=== PATIENT | male | born 1975 | race Caucasian/White ===

== ENCOUNTER → 2019-01-15 14:50 | Outpatient (CLI) | payer MEDICAID, SELFPAY ==
[2015-12-22 14:54] VITALS: BMI 20.5
[2019-01-15 19:25] LABS: Amphetamine Urine VISTA NEGATIVE (<1000 ng/mL); Barbiturate Urine VISTA NEGATIVE (< 200 ng/mL); Benzodiazepine Urine VISTA POSITIVE (< 200 ng/mL); Cocaine Urine VISTA NEGATIVE (< 300 ng/mL); Ecstacy Urine VISTA NEGATIVE (< 500 ng/mL); Methadone Urine VISTA NEGATIVE (< 300 ng/mL); PCP Urine VISTA NEGATIVE (< 25 ng/mL); THC Urine VISTA POSITIVE (< 50 ng/mL); Vista UDS pH Range 6
== END ==
PROVIDERS: PCP Family Medicine; Visit Provider Family Medicine
DX: Z51.81 Encounter for therapeutic drug level monitoring (principal)
CPT/HCPCS: 80307

== ENCOUNTER → 2022-11-04 | Outpatient (CLI) | payer MEDICARE, MEDICAID, SELFPAY ==
[2022-11-04 12:43] LABS: Amphetamine Urine VISTA NEGATIVE (<1000 ng/mL); Barbiturate Urine VISTA NEGATIVE (< 200 ng/mL); Benzodiazepine Urine VISTA POSITIVE (< 200 ng/mL); Cocaine Urine VISTA NEGATIVE (< 300 ng/mL); Ecstacy Urine VISTA NEGATIVE (< 500 ng/mL); Methadone Urine VISTA NEGATIVE (< 300 ng/mL); PCP Urine VISTA NEGATIVE (< 25 ng/mL); THC Urine VISTA POSITIVE (< 50 ng/mL); Vista UDS pH Range 6
== END | disposition home or self-care (01) ==
LOC: LABSPEC 08:21
PROVIDERS: PCP Family Medicine; Referring Provider Family Medicine; Visit Provider Family Medicine
DX: Z79.899 Other long term (current) drug therapy (principal)
CPT/HCPCS: 80307

== ENCOUNTER → 2023-07-19 | Outpatient (CLI) | payer MEDICARE, MEDICAID, SELFPAY ==
[2023-07-19 17:43] LABS: Absolute Lymphocyte Count 2.82 X10^3/uL (0.83-4.51); Basophil# 0.07 X10^3/uL; Basophil% 0.7 % (0-1); Eosinophil# 0.12 X10^3/uL; Eosinophils% 1.3 % (0-5); Hematocrit 43.7 % (40-54); Hemoglobin 13.5 g/dL (13.0-16.5); Lymphocyte # 2.82 X10^3/ul (0.83-4.51); Lymphocyte % 29.7 % (19-41); Mean Corp Hgb Conc 30.9 g/dL (32-36); Mean Corpuscular Hgb 28.7 pg (27.0-32.0); Mean Corpuscular Volume 92.8 fL (80-94); Mean Platelet Vol. 9.3 fl (6.2-12.0); Monocyte# 0.46 X10^3/uL; Monocyte% 4.9 % (0-10); NRBC Flagged by Analyzer 0 % (0-5); Neutrophil % 63.3 % (47-70); Platelet Count 339 K/mm3 (150-450); RBC Distribution Width CV 15.5 % (11.6-14.6); RBC Distribution Width SD 53.1 fl (35.1-43.9); Red Blood Count 4.71 M/mm3 (4.6-6.2); White Blood Count 9.5 K/mm3 (4.4-11.0)
[2023-07-19 18:07] LABS: Amphetamine Urine VISTA NEGATIVE (<1000 ng/mL); Barbiturate Urine VISTA NEGATIVE (< 200 ng/mL); Benzodiazepine Urine VISTA POSITIVE (< 200 ng/mL); Cocaine Urine VISTA NEGATIVE (< 300 ng/mL); Ecstacy Urine VISTA NEGATIVE (< 500 ng/mL); Methadone Urine VISTA NEGATIVE (< 300 ng/mL); PCP Urine VISTA NEGATIVE (< 25 ng/mL); THC Urine VISTA POSITIVE (< 50 ng/mL); Vista UDS pH Range 5
[2023-07-19 18:10] LABS: AST(SGOT) 13 U/L (15-37); Alanine Aminotransfer ALT/SGPT 17 U/L (16-61); Albumin, Serum 3.9 g/dL (3.2-5.0); Alkaline Phosphatase 84 U/L (45-117); Anion Gap 8 (5-15); BUN 11 mg/dL (7-18); BUN/Creat Ratio 9.3 RATIO (10-20); Calcium,Total 8.6 mg/dL (8.5-10.1); Chloride 111 mmol/L (98-107); Cholesterol 232 mg/dL (200); Creatinine, Serum 1.18 mg/dL (0.70-1.30); EST Glomerular Filtration Rate 70 mL/min (>60); Est Glom Filt Rate - Afr Amer 85 mL/min (>60); Globulin 3.9 g/dL (2.2-4.2); Glucose 81 mg/dL (74-106); High Density Lipoprotein 25 mg/dL; Potassium 3.7 mmol/L (3.5-5.1); Protein, Total 7.8 g/dL (6.4-8.2); Sodium Level 139 mmol/L (136-145); Triglycerides 179 mg/dL; Very Low Density Lipoprotein 36 mg/dL (5-40)
--- OUTSIDE RECORDS SUMMARY | 2023-07-19 20:17 | XMS RPT_ITS | CCD ---
Author Name Unknown Address [address] [place] [address] Organization [facility] Care Team Providers Care Loss Prevention Analyst Name Role Phone DAKSHA DAVILA Unavailable Unavailable DAKSHA DAVILA Unavailable Unavailable MIRTA DAE ZOHRAB Unavailable Unavai lable MIRTA, DAE ZOHRAB Unavailable Unavai lable MIRTA DAE ZOHRAB Unavailable Unavai lable MIRTA, DAE ZOHRAB Unavailable Unavai lable DAKSHA DAVILA Unavailable Unavailable DAKSHA DAVILA Unavailable Unavailable NO REFERRING DR Unavailable Unavailable MIRTA, DAE Z Unavailable Unavailable MIRTA, DAE Z Unavailable Unavailable [facility] Unavailable Unavailable [facility] Unavailable Unavailable [facility] Unavailable Unavailable MIRTA, DAE Z Unavailable Unavailable MIRTA, DAE Z Unavailable Unavailable [facility] Unavailable Unavailable MIRTA, DAE Z Unavailable Unavailable MIRTA, DAE Z Unavailable Unavailable Roxanna Silva Primary Care Provider [phone] ROXANNA GORDILLO Attending Unavailable MD Juancho Sargent Attending Provider [phone] NON STAFF Primary Care Provider Unavailjeannie e ROXANNA SILVA Primary Care Physician Gasper Schultz Unavailable Juancho Sargent Unavailable Allergies Allergy Classification Reported Allergen(s) Allergy Type Date of Onset Reaction(s) Facility NSAIDs (1 source) Ketorolac Drug Allergy 7 Other (See Comments) [facility] (3 sources) ketorolac; Translations: [KETOROLAC TROMETHAMINE] Drug Allergy 7 [facility] Other [place] [facility] (1 source) NO KNOWN ALLERGIES; Translations: [NO KNOWN ALLERGIES] Propensity to adverse reactions (disorder) [facility] (6 sources) DULoxetine; Translations: [duloxetine] Drug Allergy 1 Unknown Reaction, Unknown [facility] Other (6 sources) gabapentin; Translations: [gabapentin] Drug Allergy 1 Unknown Reaction, Unknown [facility] Other (6 sources) Ketorolac; Translations: [Ketorolac] Drug Allergy 1 Unknown Reaction, makes me wanna tear my skin off. , Unknown [facility] Other (6 sources) topiramate; Translations: [topiramate] Drug Allergy 1 Unknown Reaction, Unknown [facility] Other Medications Current Medications Medication Drug Class(es) Dates Sig (Normalized) Sig (Original) acetaminophen 325 mg / HYDROcodone bitartrate 10 mg oral tablet (8 sources) Opioid Agonist Start: 05-06-2021 Hydrocodone-Acetam inophen Active 1 TAB PO As Directed May 06, 2021 7:12am Completed/Discontinued Medications Medication Drug Class(es) Dates Sig (Normalized) Sig (Original) 1 ml morphine sulfate 4 mg/ml injection (1 source) Opioid Agonist Start: 01-09-2021 End: 01-09-2021 morphine sulfate (PF) injection 8 mg ondansetron 4 mg disintegrating oral tablet (1 source) Serotonin-3 Receptor Antagonist Start: 01-09-2021 End: 01-09-2021 ondansetron (ZOFRAN-ODT) disintegrating tablet 4 mg 2 ml orphenadrine citrate 30 mg/ml injection (1 source) Muscle Relaxant Start: 01-09-2021 End: 01-09-2021 orphenadrine (NORFLEX) injection 60 mg Problems Active Problems Problem Classification Problem Date Documented Date Episodic/Chronic Genitourinary symptoms and ill-defined conditions (1 source) Unspecified urinary incontinence; Translations: [UNSPECIFIED URINARY INCO] Onset: 12-22-2016 Chronic Other nervous system disorders (5 sources) Cervical myelopathy; Translations: [Disease of spinal cord, unspecified] Chronic Other nervous system disorders (1 source) Disease of spinal cord, unspecified; Translations: [Cervical myelopathy G95.9] Onset: 03-09-2021 Resolved: 03-09-2021 Chronic Other nervous system disorders (4 sources) Chronic pain; Translations: [Other chronic pain] Chronic Other nervous system disorders (1 source) Other chronic pain Onset: 04-24-2021 Resolved: 04-24-2021 Chronic Other non-traumatic joint disorders (1 source) Osteophyte of bone 08-17-2018 Episodic Other skin disorders (1 source) Folliculitis; Translations: [Follicular disorder, unspecified] Episodic Residual codes; unclassified (1 source) Chronic back pain 08-17-2018 Episodic Spondylosis; intervertebral disc disorders; other back problems (20 sources) Other intervertebral disc displacement, lumbosacral region; Translations: [Spondylosis without myelopathy or radiculopathy, lumbosacral region] Onset: 12-22-2016 Resolved: 04-24-2021 Chronic Substance-related disorders (2 sources) Nicotine dependence, cigarettes, uncomplicated; Translations: [Smoker] Onset: 12-22-2016 07-10-2017 Chronic Past or Other Problems Problem Classification Problem Date Documented Date Episodic/Chronic Joint disorders and dislocations; trauma-related (1 source) Dislocation of unspecified lumbar vertebra, sequela; Translations: [Dislocation of unspecified lumbar vertebra, sequela] Onset: 03-14-2017 Episodic Medical examination/evaluatio n (1 source) Encounter for other preprocedural examination; Translations: [Encounter for other preprocedural examination] Onset: 03-14-2017 Episodic Other aftercare (2 sources) ferry terminal agent (current) use of antibiotics; Translations: [Other terminologist (current) drug therapy] Onset: 12-22-2016 Episodic Spondylosis; intervertebral disc disorders; other back problems (14 sources) Low back pain; Translations: [Intervertebral disc disorders with radiculopathy, lumbar region] Onset: 12-22-2016 Resolved: 04-24-2021 Episodic Unclassified (1 source) Other intervertebral disc displacement, lumbosacral region Onset: 03-15-2017 Results Test Name Value Interpretation Reference Range Facil ity Vital Signs Date Time Vital Sign Value Performing Clinician Facility 05-06-2021 13:02-0500 Diastolic blood pressure 88 mm[Hg] MD Juancho Sargent Work Phone: [facility] 05-06-2021 13:02-0500 Heart rate 84 /min MD Juancho Sargent Work Phone: [facility] 05-06-2021 13:02-0500 Respiratory rate 16 /min MD Juancho Sargent Work Phone: [facility] 05-06-2021 13:02-0500 SaO2% (BldA) [Mass fraction] 98 % MD Juancho Sargent Work Phone: [facility] 05-06-2021 13:02-0500 Systolic blood pressure 118 mm[Hg] MD Juancho Sargent Work Phone: [facility] 05-06-2021 12:23-0500 Inhaled oxygen flow rate 3 L/min MD Juancho Sargent Work Phone: [facility] 05-06-2021 11:57-0500 Body height 167.64 cm MD Juancho Sargent Work Phone: [facility] 05-06-2021 11:57-0500 Body mass index (BMI) [Ratio] 25.7 kg/m2 MD Juancho Sargent Work Phone: [facility] 05-06-2021 11:57-0500 Body weight 72.12 kg MD Juancho Sargent Work Phone: [facility] 04-24-2021 09:30-0500 Body height 167.64 cm Juancho Sargent Other [facility] Other 04-24-2021 09:30-0500 Body mass index (BMI) [Ratio] 25.5 kg/m2 Juancho Sargent Other [facility] Other 04-24-2021 09:30-0500 Body weight 71.67 kg Juancho Sargent Other [facility] Other 04-24-2021 09:30-0500 Diastolic blood pressure 96 mm[Hg] Juancho Sargent Other [facility] Other 04-24-2021 09:30-0500 Systolic blood pressure 160 mm[Hg] Juancho Sargent Other [facility] Other 03-09-2021 14:30-0400 Body height 167.64 cm Gasper Schultz Other [facility] Other 03-09-2021 14:30-0400 Body mass index (BMI) [Ratio] 26.63 kg/m2 Gasper Schultz Other [facility] Other 03-09-2021 14:30-0400 Body weight 74.84 kg Gasper Schultz Other [facility] Other 01-09-2021 12:50-0400 Body height 167.6 cm Roxanna Gordillo MD Work Phone: [facility] Work Phone: 01-09-2021 12:50-0400 Body mass index (BMI) [Ratio] 26.63 kg/m2 Roxanna Gordillo MD Work Phone: [facility] Work Phone: 01-09-2021 12:50-0400 Body temperature 98.2 [degF] Roxanna Gordillo MD Work Phone: [facility] Work Phone: 01-09-2021 12:50-0400 Body weight 74.84 kg Roxanna Gordillo MD Work Phone: [facility] Work Phone: 01-09-2021 12:50-0400 Diastolic blood pressure 103 mm[Hg] Roxanna Gordillo MD Work Phone: [facility] Work Phone: 01-09-2021 12:50-0400 Heart rate 90 /min Roxanna Gordillo MD Work Phone: [facility] Work Phone: 01-09-2021 12:50-0400 Respiratory rate 18 /min Roxanna Gordillo MD Work Phone: [facility] Work Phone: 01-09-2021 12:50-0400 SaO2% (BldA) [Mass fraction] 98 % Roxanna Gordillo MD Work Phone: [facility] Work Phone: 01-09-2021 12:50-0400 Systolic blood pressure 169 mm[Hg] Roxanna Gordillo MD Work Phone: [facility] Work Phone: Encounters Encounter Date Encounter Type Care Provider Facility Start: 09-01-2021 End: 09-01-2021 Patient encounter procedure GASPER SCHULTZ [facility] Start: 05-26-2021 End: 05-26-2021 ambulatory Gasper Schultz Other [facility] Other Start: 05-26-2021 Telephone encounter Gasper Mariscal [facility] Start: 05-06-2021 (Procedure) Short Juancho Sargent [facility] Start: 05-06-2021 End: 05-06-2021 ambulatory Juancho Sargent Other [facility] Other Start: 05-06-2021 End: 05-06-2021 Admission to same day surgery center MD Juancho Sargent Work Phone: [facility] Start: 04-29-2021 End: 04-29-2021 ambulatory Juancho Sargent Other [facility] Other Start: 04-29-2021 Telephone encounter Juancho GARCÍA [facility] Start: 04-24-2021 End: 04-24-2021 ambulatory Juancho Sargent Other [place] [facility] Other Start: 04-24-2021 Office outpatient ne w 45 minutes Juancho Sargent [facility] [place] Start: 03-09-2021 Office outpatient ne w 45 minutes Gasper Schultz [facility] Start: 01-09-2021 Emergency department patient visit ROXANNA GORDILLO [facility] Start: 01-09-2021 End: 01-09-2021 Emergency department patient visit Roxanna Gordillo MD Work Phone: [facility] ED Procedures Date Procedure Procedure Detail Performing Clinician Start: 05-06-2021 Injection of spinal epidural space MD Juancho Sargent Work Phone: Plan of Treatment Date Care Activity Detail Author Start: 02-04-2021 Influenza vaccination Flu vaccine (# 1) [facility] Phone: Start: 1987 COVID-19 Vaccine (1) COVID-19 Vaccin e (1) [facility] Phone: Patient Education [facility] Patient referral [facility] Payers Date Payer Category Payer Medicaid [id number]. [id number] 2014 Medicare [id number] Medicaid [id number] Self-pay Social History Date Type Detail Facility Start: 01-09-2021 Tobacco smoking stat [facility] Current every day smoker [facility] Phone: Start: 01-09-2021 Cigarettes smoked current (pack per day) - Reported [facility] Phone: Start: 01-09-2021 Tobacco use and exposure Never used [facility] Start: 01-09-2021 Alcohol intake Ex-drinker (finding) [facility] Phone: Start: 1975 Sex Assigned At Not on file [employer] Phone: Exposure to SARS-CoV -2 (event) Not sure [facility] Start: 1975 Sex Assigned At Male F [facility] Tobacco Cigarettes [facility] Goals Date Patient Goal Desired Activity /State Evaluation note 04-24-2021 Note Date & Type Note Facility [facility] Other Evaluation note 03-09-2021 Note Date & Type Note Facility [facility] Other Evaluation + Plan note Note Date & Type Note Facility Evaluation + Plan note No data available for this section [facility] Evaluation note Note Date & Type Note Facility documented in this encounter [facility] Phone: Evaluation note Note Date & Type Note Facility Evaluation note No assessment information [facility] Evaluation note Note Date & Type Note Facility Evaluation note No Information [facility] Other History general Narrative - Reported Note Date & Type Note Facility [facility] Other History general Narrative - Reported Note Date & Type Note Facility History general Narrative - Reported [facility] Other Hospital Discharge instructions Attachments Note Date & Type Note Facility Hospital Discharge instructions The following attachments cannot be sent through Care Everywhere.Folliculitis (Maldivian)Back Pain (Maldivian)documented in this encounter [facility] Phone: Hospital Discharge instructions Note Date & Type Note Facility Hospital Discharge instructions No data available for this section [facility] Summary Purpose Family History Relationship Condition Age at Onset Recorded Date/T karolyn Not Specified No pertinent family history Unknown Advance Directives Advance Directive Response Recorded Date/ Time Advance Directives No April 10:29am Chief Complaint and Reason for Visit Chief Complaint Back Pain Reason for Referral Reason *Waiting for appt Evaluate and Treat; (R) YADIRA L5-S1 Diagnosis 1 Lumbosacral disc her niation (M51.27) Referral Organization [facility]ros[facility]gery Referring Provider First Name Gasper Referring Provider Last Name Ellen Referring Provider Specialty Neurosurger y Referred Organization [facility] Referred Provider Juancho Sargent Referred Address [address] [address] ,[place], [place],[address] Referred Provider Specialty Pain Medicin e Referral Priority Routine General Notes Nusrat Freeman 021 09:15:49 AM >Received today and sent P2P Additional Source Comments (unrecognized sect ion and content) No Status Records FoundNo Status Records FoundNo Status Records FoundNo Status Records FoundNo Status Records Found INFORMATION SOURCE (unrecogn ized section and content) DATE CREATED AUTHOR AUTHOR'S ORGANIZ ATION 11/29/2017 [facility] DATE CREATED AUTHOR AUTHOR'S ORGANIZ ATION 11/30/2017 [facility] DATE CREATED AUTHOR AUTHOR'S ORGANIZ ATION 01/10/2021 [facility] DATE CREATED AUTHOR AUTHOR'S ORGANIZ ATION 09/03/2021 [facility] Reason for Visit (unrecogniz ed section and content) RIGHT L5, S1 TRANSFORAMIN AL EPIDURAL STEROID INJ/EL Ordered Prescriptions (unrec ognized section and content) Scheduled Active and Recently Administ ered Medications (unrecognized section and content) FOR RECORDS PERTAINING TO PATIENTS WHO ARE OR HAVE BEEN ENROLLED IN A CHEMICAL DEPENDENCY/SUBSTANCEABUSE PROGRAM, SOME INFORMATION MAY BE OMITTED. This clinical summary was aggregated from multiple sources. Caution should be exercised in using it in the provision of clinical care. This summary normalizes information from multiple sources, and as a consequence, information in this document may materially change the coding, format and clinical context of patient data. In addition, data may be omitted in some cases. CLINICAL DECISIONS SHOULD BE BASED ON THE PRIMARY CLINICAL RECORDS. [employer] provides no warranty or guarantee of the accuracy or completeness of information in this document.
== END | disposition home or self-care (01) ==
PROVIDERS: PCP Family Medicine; Visit Provider Family Medicine
DX: Z00.00 Encounter for general adult medical examination without abnormal findings (principal); Z79.899 Other long term (current) drug therapy
CPT/HCPCS: 36415; 80053; 80061; 80307; 85025

== ENCOUNTER 2024-01-12 14:48 | Outpatient (CLI) | payer MEDICARE, MEDICAID, SELFPAY | END 2024-01-12 23:59 | disposition home or self-care (01) | PROVIDERS: PCP Family Medicine; Referring Provider Family Medicine; Visit Provider Family Medicine | DX: F11.90 Opioid use, unspecified, uncomplicated (principal) | CPT/HCPCS: 82570 ==

== ENCOUNTER → 2024-07-19 | Outpatient (CLI) | payer MEDICAID, OTHER, SELFPAY ==
[2024-07-19 17:53] LABS: Amphetamine Urine NEGATIVE (<1000 ng/mL); Barbiturate Urine VISTA NEGATIVE (< 200 ng/mL); Benzodiazepine Urine VISTA POSITIVE (< 200 ng/mL); Cocaine Urine VISTA NEGATIVE (< 300 ng/mL); Ecstacy Urine VISTA NEGATIVE (< 500 ng/mL); Methadone Urine VISTA NEGATIVE (< 300 ng/mL); Opiates Urine POSITIVE (< 300 ng/mL); PCP Urine NEGATIVE (< 25 ng/mL); THC Urine VISTA POSITIVE (< 50 ng/mL); Vista UDS pH Range 5
== END | disposition home or self-care (01) ==
PROVIDERS: PCP Family Medicine; Visit Provider Family Medicine
DX: Z79.899 Other long term (current) drug therapy (principal)
CPT/HCPCS: 80307

== ENCOUNTER → 2025-01-22 | Outpatient (CLI) | payer MEDICARE, MEDICAID, SELFPAY ==
[2025-01-22 19:41] LABS: Barbiturate Urine NEGATIVE (< 200 ng/mL); Benzodiazepine Urine PRESUMPTIVE POSITIVE (< 200 ng/mL); PCP Urine NEGATIVE (< 25 ng/mL); THC Urine PRESUMPTIVE POSITIVE (< 50 ng/mL)
== END | disposition home or self-care (01) ==
LOC: LABSPEC 16:55
PROVIDERS: PCP Family Medicine; Visit Provider Family Medicine
DX: Z79.899 Other long term (current) drug therapy (principal)
CPT/HCPCS: 80307

== ENCOUNTER → 2025-04-23 | Outpatient (CLI) | payer MEDICARE, MEDICAID, SELFPAY ==
[2025-04-23 17:41] LABS: Hematocrit 41.1 % (40-54); Hemoglobin 12.9 g/dL (13.0-16.5); Immature Granulocytes Count 0.010 X10^3/uL (0.0-0.0); Mean Corp Hgb Conc 31.4 g/dL (32-36); Mean Corpuscular Volume 91.3 fL (80-94); Mean Platelet Vol. 9.5 fl (6.2-12.0); NRBC Flagged by Analyzer 0 % (0-5); Platelet Count 310 K/mm3 (150-450); RBC Distribution Width CV 14.6 % (11.6-14.6); RBC Distribution Width SD 49.3 fl (35.1-43.9); Red Blood Count 4.50 M/mm3 (4.6-6.2); White Blood Count 7.7 K/mm3 (4.4-11.0)
[2025-04-23 18:31] LABS: AST(SGOT) 21 U/L (<=37); Alanine Aminotransfer ALT/SGPT 16 U/L (<=46); Albumin, Serum 4.6 g/dL (3.5-5.0); Alkaline Phosphatase 74 U/L (40-129); Anion Gap 15 (5-15); BUN 14 mg/dL (4-19); BUN/Creat Ratio 9.9 RATIO (10-20); Calcium,Total 9.3 mg/dL (7.6-11.0); Carbon Dioxide 19.6 mmol/L (21.0-32.0); Chloride 107 mmol/L (98-108); Cholesterol 235 mg/dL (<=200); Globulin 3.3 g/dL (2.2-4.2); Glucose 88 mg/dL (70-99); HIV Nonreactive (Nonreactive); Low Density Lipoprotein Calc. 184 mg/dL; Potassium 4.0 mmol/L (3.3-5.1); Triglycerides 136 mg/dL; Very Low Density Lipoprotein 27 mg/dL (5-40); cholesterol:hdl ratio screen 9.22
[2025-04-23 18:35] LABS: Barbiturate Urine NEGATIVE (< 200 ng/mL); Benzodiazepine Urine PRESUMPTIVE POSITIVE (< 200 ng/mL); PCP Urine NEGATIVE (< 25 ng/mL); THC Urine PRESUMPTIVE POSITIVE (< 50 ng/mL)
== END | disposition home or self-care (01) ==
LOC: BFHLAB 15:39
PROVIDERS: PCP Family Medicine; Visit Provider Family Medicine
DX: Z00.00 Encounter for general adult medical examination without abnormal findings (principal); B37.0 Candidal stomatitis; Z79.899 Other long term (current) drug therapy
CPT/HCPCS: 36415; 80053; 80061; 80307; 85025; 86703